=== PATIENT | female | born 1980 | race Two or more races ===

== ENCOUNTER 2019-02-22 18:56 | Emergency (ER) | payer OTHER ==
[~2019-02-22] VITALS: Ht 165.1 cm; Wt 59.9 kg
[2019-02-22 19:18] VITALS: BP 132/78
[2019-02-22] MEDS ORDERED: IV NS 0.9% 1,000 ML BAG IV ONE (20:00)
== END 2019-02-22 20:31 | disposition home or self-care (01) ==
LOC: ER 19:00
DX: O26.891 Other specified pregnancy related conditions, first trimester (principal); R19.7 Diarrhea, unspecified; Z98.890 Other specified postprocedural states; Z3A.01 Less than 8 weeks gestation of pregnancy
CPT/HCPCS: J7030